=== PATIENT | male | born 1995 | race Caucasian/White ===

== ENCOUNTER → 2019-10-04 12:54 | Outpatient (CLI) | payer OTHER, SELFPAY ==
--- NOTE | ~2019-10-04 | US_ITS ---
EXAMINATION: US scrotum doppler EXAM DATE: 10/04/2019 13:22 INDICATION: Palpable left testicular lump. TECHNIQUE: Multiple grayscale and Doppler images of the testicles and scrotum were obtained bilateral ly. There is no prior study for comparison. FINDINGS: Right testicle measures 4.9 x 2.5 x 5.2 cm and is morphologically normal. Low resistance Doppler sumeet w confirmed. The epididymis is unremarkable. There is small hydrocele. Left testicle measures 5.0 x 2.9 x 2.8 cm and is morphologically normal. Low resistance Doppler flow confirmed. There is 4 mm epididymal head cyst. Reportedly this was at area of concern. There is smal l hydrocele. IMPRESSION: 1. Small left epididymal head cyst. 2. Small bilateral hydroceles. Reviewed, dictated and finalized at location A.
== END ==
PROVIDERS: PCP Family Medicine; Visit Provider Family Medicine
DX: N43.3 Hydrocele, unspecified (principal); N50.3 Cyst of epididymis
CPT/HCPCS: 76870; 93976

== ENCOUNTER 2020-02-15 11:03 | Outpatient (NON) | payer OTHER, SELFPAY ==
[2020-02-15 23:21] LABS: SARS-CoV-2 RNA PCR Negative
== END 2020-02-15 11:04 ==
LOC: ANHCOVIDDT 11:08
PROVIDERS: Visit Provider Nurse Practitioner Family
DX: Z20.828 Contact with and (suspected) exposure to other viral communicable diseases (principal); J02.9 Acute pharyngitis, unspecified; R05 Cough; R53.83 Other fatigue; R09.81 Nasal congestion
CPT/HCPCS: 87635; C9803; U0003

== ENCOUNTER 2020-06-19 15:30 | Outpatient (RCR) | payer OTHER, SELFPAY ==
--- NOTE | 2020-05-08 16:46 | PTOPEVAL ---
INITIAL PHYSICAL THERAPY EVALUATION and PLAN OF CARE Thank you for referring Chris Knight to [facility].? Chris is scheduled to be seen for physical therapy? 1x/week for 4 weeks. Please review, sign, date and return this plan of care JULIANO. I agree with and certify that the following plan of care is medically necessary. Referring Physician Date Admitting Provider: Attending Provider: Moni Swift Referring Provider: *PT Outpatient Evaluation Start: 05/08/20 14:14 Freq: Status: Active Protocol: Document 05/08/20 14:10 HOLLY (Rec: 05/08/20 15:33 HOLLY [id number]) Therapy Assessment Status Assessment Status Assessment Status Evaluation Outpatient Past Medical History Past Medical History Source of Past Medical History Patient Respiratory History Hx Other Respiratory Disorders Yes: seasonal allergies Evaluation Information Problem Diagnosis lower urinary tract symptoms Onset at age 17-19 Subjective Information Initially was straining to Query Text:As Reported By Patient/ urinate - to get urine out. Family Then began to feel that he wasn't emptying fully. Then when he thought he was completed will then leak somewhat. Sexually difficulty with climaxing. Unable to perform urodynamic tests x 2 unable to get catheter past urinary sphincter. When did have initial straining issues - did have constipation - but that has cleared up. Most days will go through several bottles of water. Prior Level of Function Activity Level (Last 3 Months) Occupation IT Hand Dominance Right Medications Home Meds (Include: OTC, RX, Vitamins, Trazodone, some anxiety Herbals, Dose, Route,and Frequency) medication prn Query Text:Home Med Entries Will No Longer Recall From Past Visits. Home Meds Must Be Re-entered With Each Visit. Home Setting Home Type Condo/Duplex/Townhouse, Multiple Levels Comments Additional Prior Level of Function recreation - computer games, Comments bike riding Pain Assessment Timing of Pain Assessment Timing of Pain Assessment Assessment Self Report Self Report Pain Level 0 Pain Score Pain Score 0: Self Report Cervical and Lumbar ROM Lumbar ROM Lumbar ROM 50% of Normal Normal Lumbar Segmental Motion Yes Lumbar Comments
--- NOTE | 2020-05-30 10:50 | PCPTNOTE ---
pt called and canceled but did reschedule.
--- NOTE | 2020-06-19 16:48 | PTOPEVAL ---
PHYSICAL THERAPY DISCHARGE SUMMARY Thank you for referring Chris Knight to [facility].? Chris was seen x 6 visits in PT. Very minimal progress was made in PT - mainly proficiency with stretching and utilizing positioning for pelvic floor stretching. Soft tissue mobilization was done - but minimal, consistent gains were achieved. He may benefit from a PT who specializes more in male pelvic floor tightness. He is being discharged from PT at this time. He is to continue with stretching program. I agree with Chris's discharge from PT. Referring Physician Date Admitting Provider: Attending Provider: NEAL Valadez Referring Provider: Therapy Assessment Status Assessment Status Assessment Status Discharge Evaluation Information Problem Diagnosis lower urinary tract symptoms Subjective Information Chris reports that he is Query Text:As Reported By Patient/ doing his stretching - Family hamstring and IR. He is doing butterfly positioning on pillows, doing deep breathing, and trying to relax prior to going to sleep. Really hasn't noticed a significant change in his urination. BM's are usually soft and some difficulty feeling fully emptied - which has not changed. Pain Assessment Self Report Self Report Pain Level 0 Pelvic Health Evaluation Pelvic Floor Assessment Permission Received for External/ Yes: external work only Internal Perineal Exam External Perineal Body Palpation increased tightness with soft tissue - pelvic floor diaphragm, tissues between scrotum and anus, posterior - distal to sacrum and in anal region. Additional Comments increased IR present with R LE , but still some tightness with L LE bilat hamstring tightness still present. PT Clinical Summary Clinical Summary Protocol: PTEVCODE PT Clinical Summary Chris has been seen for 6 visits with goals of relaxation of pelvic floor to allow for more normal urination. He is compliant and performs stretching and attempting relaxation techniques. Soft tissue and joint mobilization to pelvic region has been done - but
== END 2020-06-20 11:59 | disposition home or self-care (01) ==
LOC: ANHPT 15:30
PROVIDERS: PCP Nurse Practitioner Family
DX: R39.9 Unspecified symptoms and signs involving the genitourinary system (principal)
CPT/HCPCS: 97110; 97140; 97161

== ENCOUNTER → 2020-12-16 14:53 | Outpatient (CLI) | payer OTHER, SELFPAY ==
--- NOTE | ~2020-12-16 | US_ITS ---
EXAMINATION: US scrotum doppler EXAM DATE: 12/16/2020 15:25 INDICATION: Left testicular pain . TECHNIQUE: Multiple grayscale and Doppler images of the testicles and scrotum were obtained bilateral ly. Comparison is made to prior examination from 10/04/2019. FINDINGS: Right testicle measures 5.7 x 2.8 x 3.3 cm and is morphologically normal. Low resistance Doppler sumeet w confirmed. Small epididymal head cyst. There is no hydrocele or varicocele. Left testicle measures 6.1 x 2.6 x 3.0 cm and is morphologically normal. Low resistance Doppler flow confirmed. Small epididymal head cyst. There is no hydrocele or varicocele. IMPRESSION: 1. Unremarkable testicular/scrotal ultrasound exam. Reviewed, dictated and finalized at location A.
== END ==
PROVIDERS: PCP Family Medicine
DX: N44.2 Benign cyst of testis (principal)
CPT/HCPCS: 76870; 93976